=== PATIENT | male | born 1980 | race Caucasian/White ===

== ENCOUNTER → 2020-08-27 12:14 | Outpatient (BNVA) | payer BC, SELFPAY | PROVIDERS: Family Provider Family Medicine; PCP Family Medicine; Visit Provider Family Medicine | DX: E78.00 Pure hypercholesterolemia, unspecified (principal); I10 Essential (primary) hypertension; R81 Glycosuria; Z00.00 Encounter for general adult medical examination without abnormal findings | CPT/HCPCS: 80053; 80061; 83036; 85025 ==

== ENCOUNTER 2023-04-08 07:46 | Emergency (ER) | payer BC, SELFPAY ==
[2023-04-08 08:01] VITALS: BP 168/132; PULSE 98; RESP 18; TEMP 36.8; O2SAT 99
--- NOTE | 2023-04-08 08:04 | XRR_ITS ---
PROCEDURE INFORMATION: Exam: XR Chest Exam date and time: 04/08/2023 8:15 AM Age: 43 years old Clinical indication: Dyspnea; Additional info: Dyspnea/cough TECHNIQUE: Imaging protocol: Radiologic exam of the chest. Views: 1 view. COMPARISON: CR XR chest 1V [id number] 06/03/2018 12:39 PM FINDINGS: Lungs: Unremarkable. No consolidation. Pleural spaces: Unremarkable. No pleural effusion. No pneumothorax. Heart/Mediastinum: Unremarkable. No cardiomegaly. Bones/joints: Unremarkable. XR/XR chest 1V portable [id number] IMPRESSION: No acute findings.
--- NOTE | 2023-04-08 08:24 | ED_ITS ---
HPI - General Adult General: Chief complaint: General Medical Stated complaint: work tb test Time Seen by Provider: 04/08/23 07:49 Source: patient Mode of arrival: ambulatory History of Present Illness: 43-year-old male referred to the emergen cy room after a positive TB test to the health department that he was getting for preemployment. He is completely asymptomatic no known TB exposure or foreign travel. Several weeks ago he was contacted by the health department regarding this he showed up this morning to be evaluated. Patient works for several years and EMS had yearly TB skin test that were all negative. 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 He was never in the . No overseas travel in the last 2 decades Associated symptoms: Deny chest pain, cough, dyspnea or rash Review of Systems Const: Denies: fever(s) or chills Card: Denies: chest pain Resp: Denies: dyspnea GI: Denies: abdominal pain : Denies: dysuria, urinary frequency or urinary urgency Musc: Denies: neck pain or back pain Skin/Breast: Denies: rash PFSH ED PFSH: Social History Smoking and tobacco/nicotine status: current every day tobacco/nicotine user Alcohol intake: never Substance/Drug Use: never Physical Exam Const: COMMON NORMALS: no acute distress GENERAL APPEARANCE: cooperative and comfortable ORIENTATION/CONSCIOUSNESS: Yes awake, Yes oriented to person, Yes oriented to place and Yes oriented to time HENMT: COMMON NORMALS: normocephalic, atraumatic and hearing grossly normal bilaterally HEAD & SCALP: normocephalic and atraumatic Resp: COMMON NORMALS: normal respiratory effort, No retractions, No use of accessory muscles and clear to auscultation bilaterally AUSCULTATION: clear to auscultation bilaterally Cardio: COMMON NORMALS: regular rate, regular rhythm and No murmurs present (Cardio) RATE: regular rate RHYTHM: regular rhythm GI: COMMON NORMALS: Soft to palpation and No hepatosplenomegaly present AUSCULTATION: Yes normoactive bowel sounds PALPATION: Yes Soft to palpation, No Tenderness to palpation present (GI), No Guarding due to palpation present (GI) and Yes No hepatosplenomegaly present Extremity: COMMON NORMALS: normal to inspection, capillary refill normal, no clubbing, cyanosis or edema, no calf tenderness and no pedal edema Neuro: SENSORIUM/ORIENTATION: Yes oriented to person, Yes oriented to place and Yes oriented to time Skin: COMMON NORMALS: no rashes or lesions noted GENERAL SKIN EXAM: no rashes or lesions noted Course Vital Signs: Vital signs: Vital Signs Temperature 98.2 F 04/08/23 08:01 Pulse Rate 98 04/08/23 08:01 Respiratory Rate 18 04/08/23 08:01 Blood Pressure 168/132 04/08/23 08:01 Pulse Oximetry 99 04/08/23 08:01 Oxygen Delivery Me thod Room Air 04/08/23 08:01 MDM - General Adult Medical Decision Making Patient reports positive serum TB test some suspecting it is Gold QuantiFERON test however were not able to find results of this. This was not done at our facility thought have been done at [facility] we contacted them they did not have any record of seeing him actually for the last couple of years. I discussed briefly with Dr. Ivey we both agree he is clinically not presenting with any symptoms suggestive of active TB. 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 He is not been in the and he has not traveled overseas since he left electromechanical assembler work. He is completely asymptomatic of anything suggestive of active TB. Testing was done as prescreening to start an immunosuppressive therapy for his psoriasis. We do not recommend initiating latent TB treatment at this time until he can have all of his studies reviewed in total. Recommend that he follow-up with his primary care doctor so they can review this test. Medical Records I reviewed the patient's medical records. Lab Data I reviewed the patient's lab results. XR interpretation done by ED provider, pending radiology final review Discharge Plan Discharge Patient Disposition: Home Clinical Impression: Positive TB test Condition: Stable Prescriptions: No Action prednisone 20 mg tablet 60 mg PO DAILY 5 Days Qty: 15 0RF famotidine [Pepcid] 40 mg tablet 40 mg PO BID Qty: 10 0RF Discharge Orders: Discharge ED (Routine); Ordered 04/08/23 Ordered By: Volodymyr Moura Referrals: Maynor Alvarado MD [Primary Care Provider] - Discharge Diet: Usual diet Discharge Activity: Increase activity as tolerated Patient Instructions: Opioid Safety, Pain Management Activity Restrictions/Additional Instructions: Thank you for choosing [facility] for your healthcare needs today. Please realize this is an emergency room and that we are providing you with a medical screening exam and this may not be complete and all inclusive of all the testing and or work up that you may need to determine your ailment or severity of your illness. It is very important that you follow up as instructed or that you return to the Emergency Department should you have concerns or if your condition changes or worsens in any way. You were seen today with a report of a positive deep TB test. Your chest x-ray did not show any evidence of acute/active tuberculosis. Based on your history there are no clinical signs of active TB. Recommend you follow-up with your primary care doctor. Since we were not able to find or review the reported TB testing I am not sure which test you had and this should be reviewed with your primary care doctor. Coding Level of Care Code ED Grades 9 Thru 12 Visiting Teacher for Michael Gerber
== END 2023-04-08 09:47 | disposition home or self-care (01) ==
PROVIDERS: Emergency Provider Family Medicine; PCP Family Medicine
DX: R76.11 Nonspecific reaction to tuberculin skin test without active tuberculosis (principal); Z72.0 Tobacco use
CPT/HCPCS: 71045; 99283